=== PATIENT | male | born 1965 | race Caucasian/White ===

== ENCOUNTER 2019-04-17 12:46 | Emergency (ER) | payer MEDICAID ==
[~2019-04-17] VITALS: Ht 160 cm; Wt 59.0 kg
[2019-04-17 12:55] VITALS: BP_SYST 111
--- NOTE | 2019-04-17 13:02 | NUR ---
Patient to ER bed 6 to gown for evaluation. Side rails up. Report given to Forest ELLIS.
--- NOTE | 2019-04-17 13:03 | NUR ---
Patient is awake, alert, and oriented x4. Patient is stating he needs edie removed and his chest tube site looked at. Patient has wound to left chest from chest tube insertion and 3 edie on left upper back.
--- NOTE | 2019-04-17 13:05 | NUR ---
ER Dr. Harvey at bedside examining patient.
--- NOTE | 2019-04-17 13:06 | NUR ---
3 CIRILO REMOVED FROM PATIENT'S LEFT UPPER BACK. SKIN INTACT. NO REDNESS OR DRAINAGE. CLEANED AREA AND OPEN TO AIR.
--- NOTE | 2019-04-17 13:08 | NUR ---
park services specialist called to talk to patient. Cafeteria called for tray. Patient declined cothing. Homeless packet provided.
--- NOTE | 2019-04-17 13:15 | NUR ---
Patient declined ride, states that he walks everywhere.
--- NOTE | 2019-04-17 13:17 | NUR ---
lithopone mill worker at bedside.
--- NOTE | 2019-04-17 13:26 | NUR ---
Patient given written and verbal discharge instructions and verbalizes understanding. ER MD discussed with patient the results and treatment provided. Patient in stable condition. ID arm band removed. Patient educated on pain management and to follow up with PMD. Pain Scale 0/10. Opportunity for questions provided and answered. Medication side effect fact sheet provided.
--- NOTE | 2019-04-17 13:26 | NUR ---
licensing worker is looking into a bus pass for patient.
[2019-04-17 13:27] VITALS: BP_SYST 114
--- NOTE | 2019-04-17 13:52 | NUR ---
DAFNE Hernandez, provided patient with aga pass and schedule.
--- NOTE | 2019-04-17 15:16 | NUR ---
Manager [employer] Note ED RN phoned. Patient requests to see a social insurance adviser. Met with patient at bedside. Patient is homeless. He stated he came from [place]. He moves around a lot and doesn't call anyplace home. He has no insurance and no next of kin or other person in his life. He stated he has been diagnosed with a mental illness in the past, but has not sought services in this state. Patient agreed to accept homeless resources which include [facility], [facility] Services, and the address of the local care home. Patient was given a bus pass with easy to read instructions on how to reach the [facility] for [facility] in [place]. Patient was encouraged to follow up at [facility] in [place] tomorrow, bus pass should provide transport. Patient declined clothing but was provided a lunch.
== END 2019-04-17 13:26 | disposition home or self-care (01) ==
LOC: SED 12:46
DX: Z48.02 Encounter for removal of sutures (principal); F17.200 Nicotine dependence, unspecified, uncomplicated; F20.9 Schizophrenia, unspecified; Z88.8 Allergy status to other drugs, medicaments and biological substances
CPT/HCPCS: 99281

== ENCOUNTER 2020-07-08 11:01 | Emergency (ER) | payer MEDICAID, OTHER ==
[~2020-07-08] VITALS: Ht 157.5 cm; Wt 59.0 kg
[2020-07-08 11:01] VITALS: BP_SYST 159
--- NOTE | 2020-07-08 11:01 | NUR ---
BROUGHT IN BY [employer] MACHINE OPERATOR DEPT AND PLACED IN BED #5, TRIAGED. REPORT GIVEN TO MAKAYLA
--- NOTE | 2020-07-08 11:05 | NUR ---
DR CHANCE AT BEDSIDE FOR EVALUATION
--- NOTE | 2020-07-08 11:21 | NUR ---
Patient given written and verbal discharge instructions and verbalizes understanding. ER MD discussed with patient the results and treatment provided. Patient in stable condition. ID arm band removed. Rx of NONE given. Patient educated on pain management and to follow up with PMD. Pain Scale 0/10. Opportunity for questions provided and answered. Medication side effect fact sheet provided.
== END 2020-07-08 11:21 | disposition home or self-care (01) ==
LOC: SED 11:01
DX: K40.90 Unilateral inguinal hernia, without obstruction or gangrene, not specified as recurrent (principal); Z88.8 Allergy status to other drugs, medicaments and biological substances
CPT/HCPCS: 99283